=== PATIENT | female | born 1965 | race Two or more races ===

== ENCOUNTER 2020-07-12 16:01 | Outpatient (REF) | payer OTHER, SELFPAY | END 2020-07-12 16:02 | disposition home or self-care (01) | LOC: HO.LAB 16:01 | PROVIDERS: Visit Provider Internal Medicine | DX: Z20.822 Contact with and (suspected) exposure to COVID-19 (principal) | CPT/HCPCS: 36415; C9803; U0003; U0005 ==

== ENCOUNTER 2025-04-02 10:01 | Outpatient (RCR) | payer OTHER, SELFPAY | END 2025-04-09 10:41 | disposition home or self-care (01) | LOC: HO.OT 10:01 | PROVIDERS: PCP Nurse Practitioner Family; Visit Provider Plastic Surgery | DX: M65.322 Trigger finger, left index finger (principal) | CPT/HCPCS: 97110; 97140; 97165; 97535 ==